=== PATIENT | female | born 1980 | race Caucasian/White ===

== ENCOUNTER 2019-01-27 14:14 | Emergency (ER) | payer SELFPAY ==
--- NOTE | 2019-01-27 14:25 | EDM.PDOCBH ---
ED HPI GENERAL MEDICAL PROBLEM - General Chief Complaint: Behavioral/Psych Stated Complaint: NEEDS ANXIETY MEDS REFILLED Time Seen by Provider: 01/27/19 14:25 Source of Information: Reports: Patient History Limitations: Reports: No Limitations - History of Present Illness INITIAL COMMENTS - FREE TEXT/NARRATIVE: 38-year-old female presents to the ED essentially for medication refill. She's been on venlafaxine capsules 150 mg once daily for the last 10 years. She used to live in [facility] but has since we moved to [place] and does not found a primary care practitioner yet. No without medication for the last 3 days and was rationing tablets before that. Is not sleeping and does not feel well at all.nauseated without any vomiting. Denies possibility . She uses the tablets primarily for anxiety relief. 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 on no other medications ) - Related Data Allergies Allergy/AdvReac Type Severity Reaction Status Date / Time No Known Allergies Allergy Verified 01/27/19 14:27 Home Meds: Home Meds Venlafaxine HCl [Venlafaxine HCl ER] 150 mg PO DAILY 01/27/19 [History] Venlafaxine [Effexor XR] 150 mg PO DAILY #30 cap.er 01/27/19 [Rx] Past Medical History Psychiatric History: Reports: Anxiety, Depression ED ROS GENERAL - Review of Systems Review Of Systems: See Below Constitutional: Reports: Weakness, Fatigue, Decreased Appetite (Not sleeping.). Denies: Fever, Chills, Malaise HEENT: Reports: No Symptoms Respiratory: Reports: No Symptoms Cardiovascular: Reports: No Symptoms Endocrine: Reports: Fatigue GI/Abdominal: Reports: Nausea (With no vomiting) : Reports: No Symptoms Musculoskeletal: Reports: No Symptoms Skin: Reports: No Symptoms Neurological: Reports: No Symptoms Psychiatric: Reports: Anxiety, Other Hematologic/Lymphatic: Reports: No Symptoms Immunologic: Reports: No Symptoms ED EXAM, BEHAVIORAL HEALTH - Physical Exam Exam: See Below (Insomnia) Exam Limited By: No Limitations General Appearance: Alert, Anxious (Anxious.) Eye Exam: Bilateral Eye: Normal Inspection Respiratory/Chest: No Respiratory Distress, Lungs Clear, Normal Breath Sounds, No Accessory Muscle Use Cardiovascular: Normal Peripheral Pulses, Regular Rate, Rhythm, No Edema, No Gallop, No Murmur, No Rub GI/Abdominal: Normal Bowel Sounds, Soft, Non-Tender, No Organomegaly, No Abnormal Bruit, No Mass, Pelvis Stable Back Exam: Normal Inspection, Full Range of Motion. No: CVA Tenderness (L), CVA Tenderness (R) Extremities: Normal Inspection, Normal Range of Motion, Non-Tender, No Pedal Edema Neurological: Alert Psychiatric: Alert, Normal Affect, Normal Cognition, Normal Mood, Oriented Skin Exam: Warm, Dry, Intact, Normal color, No rash COURSE, BEHAVIORAL HEALTH COMP - Course Vital Signs: Last Vital Signs Temp 36.1 C 01/27/19 14:23 Pulse 73 01/27/19 14:23 Resp 20 01/27/19 14:23 BP 133/83 01/27/19 14:23 Pulse Ox 99 01/27/19 14:23 Re-Assessment/Re-Exam: 38-year-old female presents to the ED for refill of venlafaxine 150 mg extended release capsules which she's been taking for the last 10 years. She recently relocated to [place] but has yet to find a primary care practitioner. She is to see Yara Daly primary care provider in [place]. She reports that she's been without medicine for the last 3 days and was rationing them for about a week before that. She is therefore showing some signs of withdrawal with insomnia nausea. Plan Will refill venlafaxine 150 mg extended release capsules 1 tablet daily for the next 30 days with repeats. She will find a physician here in [place] Departure - Departure Time of Disposition: 14:34 Disposition: Home, Self-Care 01 Condition: Fair Clinical Impression: Depressive disorder, Anxiety - Discharge Information *PRESCRIPTION DRUG MONITORING PROGRAM REVIEWED*: Not Applicable *COPY OF PRESCRIPTION DRUG MONITORING REPORT IN PATIENT SUSIE: Not Applicable Prescriptions: Venlafaxine [Effexor XR] 150 mg PO DAILY #30 cap.er Forms: ED Department Discharge Additional Instructions: Evaluation in the emergency room today primarily in regards to medication refill. You have been on venlafaxine capsules - 150 mg daily for the last 10 years. To change in place of residence and lack of follow-up physician who attended the ED for medication refill today. Vaccine capsules 150 mg extended release were refilled today for the next 6 months. Continue to follow up with a primary care physician here in [place] for future refills. Sepsis Event Note - Focused Exam Vital Signs: Vital Signs Temp Pulse Resp BP Pulse Ox 01/27/19 14:23 36.1 C 73 20 133/83 99 Date Exam was Performed: 01/27/19 Time Exam was Performed: 14:38
== END 2019-01-27 14:43 | disposition home or self-care (01) ==
LOC: JD.ED 14:14 → SUPCPDRO 14:14 → JD.ED 14:43
DX: F32.9 Major depressive disorder, single episode, unspecified (principal); R53.1 Weakness; Z76.0 Encounter for issue of repeat prescription; Z79.899 Other long term (current) drug therapy
CPT/HCPCS: 99283; 99284

== ENCOUNTER 2019-02-26 08:44 | Emergency (ER) | payer SELFPAY ==
[2019-02-26] MEDS ORDERED: Acetaminophen 325 MG Tab PO ONE (09:31)
--- NOTE | 2019-02-26 09:34 | EDM.PDOC ---
<Angela Mota - Last Filed: 02/26/19 09:26> ED HPI GENERAL MEDICAL PROBLEM - General Chief Complaint: Respiratory Problem Stated Complaint: FEVER AND CONGESTION Time Seen by Provider: 02/26/19 08:57 Source of Information: Reports: Patient History Limitations: Reports: No Limitations - History of Present Illness INITIAL COMMENTS - FREE TEXT/NARRATIVE: 38-year-old female presents with cough, congestion, fever, headache, and body aches that have been occurring for about a week. She states that she had vomited 2 days ago but has not since. Her fever was around 101 F at home but is 103 F in the ED today. She notes extreme thirst despite adequate fluid intake. The patient has been treating her symptoms with ibuprofen. She has also been taking 500 mg amoxicillin capsules that her friend had picked up in [place]. There has been no improvement in her symptoms. 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 She did not receive her influenza vaccination this year. 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 Generalized Pain Score (Numeric/FACES): 7 - Related Data Allergies Allergy/AdvReac Type Severity Reaction Status Date / Time No Known Allergies Allergy Verified 02/26/19 08:55 Home Meds: Home Meds Venlafaxine [Effexor XR] 150 mg PO DAILY #30 cap.er 01/27/19 [Rx] Past Medical History - Past Health History Medical/Surgical History: Denies Medical/Surgical History Psychiatric History: Reports: Anxiety, Depression Social & Family History - Tobacco Use Smoking Status *Q: Current Some Day Smoker Years of Tobacco use: 20 Packs/Tins Daily: 0.1 - Caffeine Use Caffeine Use: Reports: Coffee - Recreational Drug Use Recreational Drug Use: Yes Drug Use in Last 12 Months: Yes Recreational Drug Type: Reports: Marijuana/Hashish Recreational Drug Use Frequency: Socially ED ROS GENERAL - Review of Systems Review Of Systems: See Below Constitutional: Reports: Fever, Chills, Fatigue, Diaphoresis HEENT: Reports: Sinus Problem (congestion ). Denies: Ear Pain, Throat Pain Respiratory: Reports: Cough. Denies: Shortness of Breath, Hemoptysis Cardiovascular: Reports: No Symptoms GI/Abdominal: Reports: Abdominal Pain (LLQ, not currently, occurs during bowel movements ), Constipation, Vomiting (once 2 days ago ). Denies: Bloody Stool, Diarrhea, Difficulty Swallowing, Hematemesis, Nausea : Reports: No Symptoms Musculoskeletal: Reports: Other (generalized body aches) Skin: Reports: Diaphoresis. Denies: Rash Neurological: Reports: Headache. Denies: Confusion, Dizziness, Syncope, Weakness Psychiatric: Reports: No Symptoms (history of anxiety and depression) Hematologic/Lymphatic: Reports: No Symptoms Immunologic: Reports: No Symptoms ED EXAM, GENERAL - Physical Exam Exam: See Below Exam Limited By: No Limitations General Appearance: Alert, WD/WN, No Apparent Distress Ears: Normal External Exam, Normal Canal, Hearing Grossly Normal, Normal TMs Nose: Normal Inspection, Normal Mucosa, No Blood Throat/Mouth: Normal Inspection, Normal Lips, Normal Oropharynx, Normal Voice, No Airway Compromise Head: Atraumatic, Normocephalic Neck: Normal Inspection, Supple, Non-Tender. No: Lymphadenopathy (L), Lymphadenopathy (R) Respiratory/Chest: No Respiratory Distress, Lungs Clear, Normal Breath Sounds, No Accessory Muscle Use Cardiovascular: Normal Peripheral Pulses, Regular Rate, Rhythm, No Murmur GI/Abdominal: Normal Bowel Sounds, Soft, Non-Tender Neurological: Alert, Oriented, Normal Cognition Psychiatric: Normal Affect, Normal Mood Skin Exam: Warm, Intact, Normal Color, No Rash, Diaphoretic Lymphatic: No Adenopathy Course - Vital Signs Last Recorded V/S: Last Vital Signs Temp 103 F H 02/26/19 08:59 Pulse 109 H 02/26/19 08:59 Resp 16 02/26/19 08:59 BP 149/88 H 02/26/19 08:59 Pulse Ox 99 02/26/19 08:59 - Orders/Labs/Meds Meds: Medications Discontinued Medications Generic Name Dose Route Start Last Admin Trade Name Freq PRN Reason Stop Dose Admin Acetaminophen 975 mg 02/26/19 09:31 02/26/19 09:39 Tylenol PO 02/26/19 09:32 975 mg NOW ONE Administration Departure - Departure Disposition: Home, Self-Care 01 Clinical Impression: Influenza - Discharge Information Instructions: Influenza, Adult Referrals: PCP,None [Primary Care Provider] - Forms: ED Department Discharge, ED Return to Work/School Form Additional Instructions: Your symptoms are very compatible with the influenza that is going around right now. As discussed you should be at the tail end of the severe part of the illness and symptoms now will get better over the next 24-48 hours. Vaporizer or steam as needed. Alternate Tylenol and Motrin or ibuprofen as needed. Drink plenty of water to maintain hydration. Follow-up clinic if not tremendously better by early next week, in the ED as needed if symptoms worsening in any way. Sepsis Event Note - Evaluation Sepsis Screening Result: No Definite Risk - Focused Exam Date Exam was Performed: 02/26/19 Time Exam was Performed: 09:26 <Junior Chadwick - Last Filed: 02/27/19 07:20> Course - Re-Assessments/Exams Free Text/Narrative Re-Assessment/Exam: 02/26/19 09:57 Initial hx and eval has been done by RACHEL Granados student. I agree with her hx and exam as documented. I have also interviewed examined patient. Chest x-ray does look good. She has had a more prolonged course of serious illness than expected with hx that the fever chills started already 4-5 days ago. She should be at the end of the more serious part of the illness, sats are good, no resp. distress, discharge instr. as documented. Departure - Departure Time of Disposition: 10:06 Condition: Fair Sepsis Event Note - Focused Exam Date Exam was Performed: 02/27/19 Time Exam was Performed: 07:18
--- NOTE | 2019-02-26 10:34 | CR ---
Chest: Two views of the chest were obtained. Comparison: No prior chest imaging. Heart size and mediastinum are normal. Lungs are clear. Bony structures are unremarkable. Impression: 1. Nothing acute is seen on two-view chest x-ray. Diagnostic code #1 This report was dictated in [place] Standard Time
== END 2019-02-26 10:35 | disposition home or self-care (01) ==
LOC: JD.ED 08:44
DX: J11.1 Influenza due to unidentified influenza virus with other respiratory manifestations (principal); F17.210 Nicotine dependence, cigarettes, uncomplicated; F41.9 Anxiety disorder, unspecified; F32.9 Major depressive disorder, single episode, unspecified; Z79.899 Other long term (current) drug therapy
CPT/HCPCS: 71046; 99284; A9270; 99282

== ENCOUNTER 2020-07-01 12:46 | Inpatient (IN) | payer MEDICAID ==
[2020-07-01] MEDS ORDERED: Nalbuphine 10 MG/1 ML Vial IVPUSH PRN (13:36)
[2020-07-01] MEDS ORDERED: Sodium Chloride 0.9% 10 ML Syringe FLUSH PRN (13:36)
[2020-07-01] MEDS ORDERED: Ampicillin 2 GM in Sodium Chloride 0.9% 100 ML IV ONE (13:36)
[2020-07-01] MEDS ORDERED: Lactated Ringers 1,000 ML IV SCH (13:45)
[2020-07-01] MEDS ORDERED: Oxytocin/Lactated Ringers 10 UNIT/1,000 ML BAG IV SCH ×2 (13:45→14:50)
[2020-07-01] MEDS ORDERED: Betamethasone Acetate/Betamethasone Sod Phosphate 30 MG/5 ML MDV ONE (13:51)
--- NOTE | 2020-07-01 15:23 | PCM.PREANE ---
Preanesthetic Assessment - Anesthesia/Transfusion/Family Hx Anesthesia History: Prior Anesthesia Without Reaction Family History of Anesthesia Reaction: No Transfusion History: No Prior Transfusion(s) - Review of Systems General: No Symptoms Pulmonary: No Symptoms Cardiovascular: No Symptoms Gastrointestinal: Abdominal Pain (contractions) Neurological: No Symptoms Other: Reports: Depression, Anxiety - Physical Assessment NPO Status Date: 07/01/20 NPO Status Time: 08:00 Vital Signs: 139/83 98 100% RA 20 RR ASA Class: 2E Mental Status: Alert & Oriented x3 Airway Class: Mallampati = 2 Dentition: Reports: Broken Tooth/Teeth (Very poor dentition, patient states no loose teeth), Missing Tooth/Teeth, Caries Thyro-Mental Finger Breadths: 3 Mouth Opening Finger Breadths: 3 ROM/Head Extension: Full Lungs: Clear to Auscultation Cardiovascular: Regular Rate - Lab Values: Laboratory Last Values WBC 11.28 K/mm3 (3.98-10.04) H 07/01/20 13:32 RBC 4.05 M/mm3 (3.98-5.22) 07/01/20 13:32 Hgb 12.1 gm/dl (11.2-15.7) 07/01/20 13:32 Hct 35.5 % (34.1-44.9) 07/01/20 13:32 MCV 87.7 fl (79.4-94.8) 07/01/20 13:32 MCH 29.9 pg (25.6-32.2) 07/01/20 13:32 MCHC 34.1 g/dl (32.2-35.5) 07/01/20 13:32 RDW Std Deviation 43.0 fL (36.4-46.3) 07/01/20 13:32 Plt Count 250 K/mm3 (182-369) 07/01/20 13:32 MPV 8.5 fl (9.4-12.3) L 07/01/20 13:32 Neut % (Auto) 78.3 % (34.0-71.1) H 07/01/20 13:32 Lymph % (Auto) 11.3 % (19.3-51.7) L 07/01/20 13:32 Newberry % (Auto) 8.8 % (4.7-12.5) 07/01/20 13:32 Eos % (Auto) 0.9 (0.7-5.8) 07/01/20 13:32 Baso % (Auto) 0.2 % (0.1-1.2) 07/01/20 13:32 Neut # (Auto) 8.83 K/mm3 (1.56-6.13) H 07/01/20 13:32 Lymph # (Auto) 1.28 K/mm3 (1.18-3.74) 07/01/20 13:32 Newberry # (Auto) 0.99 K/mm3 (0.24-0.36) H 07/01/20 13:32 Eos # (Auto) 0.10 K/mm3 (0.04-0.36) 07/01/20 13:32 Baso # (Auto) 0.02 K/mm3 (0.01-0.08) 07/01/20 13:32 SARS-CoV-2 RNA (LUCIE) Negative (NEGATIVE) 07/01/20 13:50 Labs reviewed and okay to proceed - Allergies Allergies/Adverse Reactions: Allergies Allergy/AdvReac Type Severity Reaction Status Date / Time No Known Allergies Allergy Verified 02/26/19 08:55 - Blood Blood Available: Yes Product(s) Available: PRBC (type and screen) - Anesthesia Plan Pre-Op Medication Ordered: None PreAnesthesia Questionnaire - Past Health History Medical/Surgical History: Denies Medical/Surgical History Psychiatric History: Reports: Anxiety, Depression - SUBSTANCE USE Tobacco Use Status *Q: Current Some Day Tobacco User Tobacco Use Within Last Twelve Months: Vaping Recreational Drug Use History: Yes Recreational Drug Type: Reports: Marijuana/Hashish (Most days using) - HOME MEDS Home Medications: Home Meds Venlafaxine [Effexor XR] 150 mg PO DAILY #30 cap.er 01/27/19 [Rx] - CURRENT (IN HOUSE) MEDS Current Meds: Current Medications Lactated Ringer's (Ringers, Lactated) 1,000 mls @ 100 mls/hr IV ASDIRECTED MISSY Ampicillin Sodium 1 gm/ Sodium (Chloride) 100 mls @ 200 mls/hr IV Q4H MISSY Oxytocin/Lactated Ringer's (Pitocin In Lr 10 Units/1,000 Ml) 10 unit in 1,000 mls @ 500 mls/hr IV .CONTINUOUS MISSY Nalbuphine HCl (Nalbuphine 10 Mg/1 Ml Vial) 10 mg IVPUSH Q2H PRN PRN Reason: Pain Sodium Chloride (Sodium Chloride 0.9% 10 Ml Syringe) 10 ml FLUSH ASDIRECTED PRN PRN Reason: Keep Vein Open Discontinued Medications Betamethasone Acet/Betameth SodPhos (Betamethasone Acetate/Betamethasone Sod Phosphate 30 Mg/5 Ml Mdv) Confirm Administered Dose 30 mg .ROUTE .STK-MED ONE Stop: 07/01/20 13:52 Ampicillin Sodium 2 gm/ Sodium (Chloride) 100 mls @ 200 mls/hr IV ONETIME ONE Stop: 07/01/20 14:05
[2020-07-01] MEDS ORDERED: Morphine PF 10 MG/10 ML SDV ONE (15:39)
[2020-07-01] MEDS ORDERED: ceFAZolin 1 GM Vial ONE (16:00)
[2020-07-01] MEDS ORDERED: Ondansetron 4 MG/2 ML SDV IVPUSH PRN (16:23)
--- NOTE | 2020-07-01 16:45 | PCM.POSTAN ---
POST ANESTHESIA ASSESSMENT - MENTAL STATUS Mental Status: Alert, Oriented - RESPIRATORY Respiratory Status: Respiratory Rate WNL, Airway Patent, O2 Saturation Stable - CARDIOVASCULAR CV Status: Pulse Rate WNL, Blood Pressure Stable - GASTROINTESTINAL GI Status: No Symptoms - PAIN Pain Score: 0 - POST OP HYDRATION Hydration Status: Adequate & Stable
--- NOTE | 2020-07-01 17:01 | PCM.LDHP ---
L&D History of Present Illness - General Date of Service: 07/01/20 Admit Problem/Dx: Patient Status Order with Admit Dx/Problem 07/01/20 13:37 Patient Status [ADT] Routine Admission Diagnosis/Problem Admission Diagnosis/Problem Source of Information: Patient History Limitations: Reports: No Limitations - History of Present Illness Introduction:: Patient is a 39 y/o at 25 6/7 wks by patient reported due date of 10/08 who presents today for concerns of several days of "urinary incontinence" and now vaginal bleeding. Reports had an early US this . Otherwise had no regular care. No 20 week US. 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 (x1), Therapeutic (x2) : 4 Para: 0 LMP (Approximate): Psychiatric History: Reports: Anxiety, Depression - Past Surgical History Female Surgical History: Reports: D&C (x2) Social & Family History - Tobacco Use Tobacco Use Status *Q: Current Some Day Tobacco User - Caffeine Use Caffeine Use: Reports: Coffee - Alcohol Use Alcohol Use History: No - Recreational Drug Use Recreational Drug Use: Yes Recreational Drug Type: Reports: Marijuana/Hashish (Most days using) H&P Review of Systems - Review of Systems: Review Of Systems: See Below General: Reports: No Symptoms Pulmonary: Reports: No Symptoms Cardiovascular: Reports: No Symptoms Gastrointestinal: Reports: No Symptoms Genitourinary: Reports: Other (leakage of large amouts of fluid ) Musculoskeletal: Reports: No Symptoms Psychiatric: Reports: No Symptoms L&D Exam - Exam Exam: See Below - Vital Signs Vital Signs: Last Vital Signs Temp 36.6 C 07/01/20 16:55 Pulse Resp 12 07/01/20 16:55 BP 122/63 07/01/20 16:55 Pulse Ox 100 07/01/20 16:55 - OB Specific Contraction Intensity: Mild to Moderate Movement: Active Heart Tones: Present Heart Tones per Min: 150 Heart Rate (FHR) Variability: Moderate (6-25 bmp) Presentation: Vertex - Hollins Score Hollins Score Cervix Position: Anterior Hollins Score Consistency: Soft Hollins Score Effacement: >80% Hollins Score Dilation: > 5 cm Hollins Score Infant's Station: -1 ,0 Hollins Score Total: 12 - Exam General: Alert, Oriented, Cooperative Lungs: Clear to Auscultation, Normal Respiratory Effort Cardiovascular: Regular Rate, Regular Rhythm GI/Abdominal Exam: Soft, Non-Tender Genitourinary: Other (Speculum shows what is eventually recognized to be scalp/head at the top of the vagina ) Back Exam: Normal Inspection Extremities: Normal Inspection Skin: Warm, Dry, Intact - Patient Data Lab Results Last 24 hrs: Laboratory Results - last 24 hr 07/01/20 07/01/20 07/01/20 Range/Units 13:32 13:32 13:50 WBC 11.28 H (3.98-10.04) K/mm3 RBC 4.05 (3.98-5.22) M/mm3 Hgb 12.1 (11.2-15.7) gm/dl Hct 35.5 (34.1-44.9) % MCV 87.7 (79.4-94.8) fl MCH 29.9 (25.6-32.2) pg MCHC 34.1 (32.2-35.5) g/dl RDW Std Deviation 43.0 (36.4-46.3) fL Plt Count 250 (182-369) K/mm3 MPV 8.5 L (9.4-12.3) fl Neut % (Auto) 78.3 H (34.0-71.1) % Lymph % (Auto) 11.3 L (19.3-51.7) % Haines % (Auto) 8.8 (4.7-12.5) % Eos % (Auto) 0.9 (0.7-5.8) Baso % (Auto) 0.2 (0.1-1.2) % Neut # (Auto) 8.83 H (1.56-6.13) K/mm3 Lymph # (Auto) 1.28 (1.18-3.74) K/mm3 Haines # (Auto) 0.99 H (0.24-0.36) K/mm3 Eos # (Auto) 0.10 (0.04-0.36) K/mm3 Baso # (Auto) 0.02 (0.01-0.08) K/mm3 SARS-CoV-2 RNA (LUCIE) Negative (NEGATIVE) Blood Type A NEGATIVE Gel Antibody Screen Positive Result Diagrams: 07/01/20 13:32 - Problem List (1) 25 weeks gestation of SNOMED Code(s): 72356260 ICD Code: Z3A.25 - 25 WEEKS GESTATION OF Status: Acute Current Visit: Yes (2) No care in current SNOMED Code(s): 650848740 ICD Code: O09.30 - SUPRVSN OF PREG W INSUFFICIENT ANTENAT CARE, UNSP TRIMESTER Status: Acute Current Visit: Yes Qualifiers: Trimester: third trimester Qualified Code(s): O09.33 - Supervision of with insufficient care, third trimester (3) premature rupture of membranes SNOMED Code(s): 349257943 ICD Code: O42.919 - PRETRM ISMAEL ROM, UNSP TIME BETW RUPT AND ONST LABR, UNSP TRI Status: Acute Current Visit: Yes Qualifiers: PROM onset of labor timing: unspecified duration between rupture of membranes and onset of labor Qualified Code(s): O42.919 - premature rupture of membranes, unspecified as to length of time between rupture and onset of labor, unspecified trimester Problem List Initiated/Reviewed/Updated: Yes Orders Last 24hrs: Active Orders 24 hr Category Date Time Status Patient Status [ADT] Routine ADT 07/01/20 13:37 Active Activity as Tolerated [RC] PFP Care 07/01/20 13:37 Active Communication Order [RC] ASDIRECTED Care 07/01/20 13:37 Active Communication Order [RC] ROUTINE Care 07/01/20 16:23 Active Cooling Warming Measures [RC] ASDIRECTED Care 07/01/20 16:23 Active Heart Tones [RC] ASDIRECTED Care 07/01/20 13:37 Active Non Stress Test [RC] PER UNIT ROUTINE Care 07/01/20 13:37 Active Notify Provider [RC] ASDIRECTED Care 07/01/20 16:23 Active Notify Provider [RC] PFP Care 07/01/20 13:37 Active Notify Provider [RC] PRN Care 07/01/20 13:37 Active Oxygen Therapy [RC] ASDIRECTED Care 07/01/20 16:23 Active Peripheral IV Care [RC] . DIRECTED Care 07/01/20 13:37 Active Pulse Oximetry [RC] ASDIRECTED Care 07/01/20 16:23 Active Vital Signs [RC] PER UNIT ROUTINE Care 07/01/20 13:37 Active ANTIBODY IDENTIFICATION [BBK] Routine Lab 07/01/20 13:32 Results GROUP B STREP BY PCR [MOLEC] Stat Lab 07/01/20 13:15 Received HEP C VIRUS AB [REF] Stat Lab 07/01/20 13:32 Received HEPATITIS B SURFACE AG [CHEM] Stat Lab 07/01/20 13:32 Received PATIENT RETYPE [BBK] Routine Lab 07/01/20 15:19 Ordered RAPID PLASMA REAGIN,RPR [CHEM] Routine Lab 07/01/20 13:32 Received RUBELLA ANTIBODY IGG [CHEM] Stat Lab 07/01/20 13:32 Received TYPE AND SCREEN [BBK] Routine Lab 07/01/20 13:32 Results Ampicillin 1 gm Med 07/01/20 17:30 Active Sodium Chloride 0.9% [Normal Saline] 100 ml IV Q4H Lactated Ringers [Ringers, Lactated] 1,000 ml Med 07/01/20 13:45 Active IV ASDIRECTED Nalbuphine [Nubain] Med 07/01/20 13:36 Active 10 mg IVPUSH Q2H PRN Ondansetron [Zofran] Med 07/01/20 16:23 Active 4 mg IVPUSH ONETIME PRN Oxytocin/Lactated Ringers [Pitocin in LR 10 Units/1,000 Med 07/01/20 13:45 Active ML] 10 unit in 1,000 ml IV .CONTINUOUS Sodium Chloride 0.9% [Saline Flush] Med 07/01/20 13:36 Active 10 ml FLUSH ASDIRECTED PRN Electronic Heart Tones Ext w TOCO [WOMSER] Oth 07/01/20 13:37 Ordered Routine Electronic Heart Tones Internal [WOMSER] Per Unit Oth 07/01/20 13:37 Ordered Routine Peripheral IV Insertion Adult [OM.PC] Routine Oth 07/01/20 13:37 Ordered Resuscitation Status Routine Resus Stat 07/01/20 13:36 Ordered Medication Orders Lactated Ringer's (Ringers, Lactated) 1,000 mls @ 100 mls/hr IV ASDIRECTED MISSY Ampicillin Sodium 1 gm/ Sodium (Chloride) 100 mls @ 200 mls/hr IV Q4H MISSY Oxytocin/Lactated Ringer's (Pitocin In Lr 10 Units/1,000 Ml) 10 unit in 1,000 mls @ 500 mls/hr IV .CONTINUOUS MISSY Nalbuphine HCl (Nalbuphine 10 Mg/1 Ml Vial) 10 mg IVPUSH Q2H PRN PRN Reason: Pain Ondansetron HCl (Ondansetron 4 Mg/2 Ml Sdv) 4 mg IVPUSH ONETIME PRN PRN Reason: Nausea/Vomiting Stop: 07/01/20 19:00 Sodium Chloride (Sodium Chloride 0.9% 10 Ml Syringe) 10 ml FLUSH ASDIRECTED PRN PRN Reason: Keep Vein Open Assessment/Plan Comment:: * Speculum exam shows blood tinged fluid and scalp at top of vagina. Bedside US shows essentially anhydramnios. SVE done and shows patient to be completely dilated and -1 station. GBS collected. Ampicillin started. Betamethasone given. Full labs ordered. Peds made aware. Anticipate
--- NOTE | 2020-07-01 17:06 | PCM.OPNOTE ---
- General Post-Op/Procedure Note Date of Surgery/Procedure: 07/01/20 Operative Procedure(s): Primary classical Findings: Baby boy in vertex presentation. APGARS / Weight pending at time of dictation. Normal appearance of the uterus, fallopian tubes, and ovaries. Pre Op Diagnosis: 25 6/7 wks. PPROM. Compound presentation Post-Op Diagnosis: Same Anesthesia Technique: Spinal Primary Surgeon: Anni Shields Secondary Surgeon: Charleen Wray Anesthesia Provider: Steph Thomas Reason Bilingual Operator Was Necessary: Speed, safety of procedure Pathology: Cord gas attempted. Placenta sent to pathology Fluid Replacement, Intraop: 1,500 Output, Urine Amount: 30 EBL in mLs: 700 Complications: None Condition: Good Free Text/Narrative:: The risks, benefits, indications, potential complications, and alternatives were explained to the patient and informed consent obtained. After induction of anesthesia, the patient was placed in a supine position and then draped and prepped in the usual sterile manner. A Pfannenstiel incision was made and carried down through the subcutaneous tissue to the fascia. Fascia l incision was made and extended transversely. The fascia was from the underlying rectus tissue superiorly and inferiorly. The peritoneum was identified and entered. Peritoneal incision was extended longitudinally. A classical uterine incision was made sharply. With incision an anterior placenta was encountered. Able to bluntly breech the uterine cavity and gently stretch the uterine incision. Baby head noted to be wedged in the pelvis.Able to gently grasp feet and bring though the hysterotomy. Baby delivered up to hips and then gentle traction placed on hips. Arms swept in standard maneuvers. Head did not immediately delivery. Vaginal hand placed by clerical dentist assistant and gently pushed up and allowed delivery to occur. Cord clamped and baby handed to [employer] Administrator. Segment obtained for cord gas. Not able to obtain cord blood. The placenta was removed intact and appeared normal. The uterus was exteriorized and cleared of clots. The uterine outline, tubes and ovaries appeared normal. The uterine incision was closed with 2 layers of running, locked 0 Vicryl. Several horizontal sutures also placed in a 3rd layer. Finally the serosa was closed with a running 4-0 Vicryl placed in a baseball stitch. The uterus was then placed back into the abdomen. Bleeding noted over hysterotomy site. Patient given tranexamic acid and Momo Seal placed across incision. After several minutes was reassessed and hemostasis noted. The fascia was then reapproximated with running sutures of 0 Vicryl. The subcutaneous tissue was irrigated with sterile warm normal saline, hemostasis obtained with cautery. This layer was closed with several interrupted 0 Vicryl sutures. The skin was reapproximated with running Subcuticular 4-0 Monocryl suture and sealed with Dermabond. Instrument, sponge, and needle counts were correct prior the abdominal closure and at the conclusion of the case.
--- NOTE | 2020-07-01 17:18 | PCM48HPAN ---
Post Anesthesia Note - EVALUATION WITHIN 48HRS OF ANESTHETIC Vital Signs in Normal Range: Yes Patient Participated in Evaluation: Yes Respiratory Function Stable: Yes Airway Patent: Yes Cardiovascular Function Stable: Yes Hydration Status Stable: Yes Pain Control Satisfactory: Yes Nausea and Vomiting Control Satisfactory: Yes Mental Status Recovered: Yes Vital Signs: Last Vital Signs Temp 36.4 C 07/01/20 17:06 Pulse Resp 15 07/01/20 17:06 BP 118/65 07/01/20 17:06 Pulse Ox 100 07/01/20 17:06
[2020-07-01] MEDS ORDERED: Acetaminophen/oxyCODONE 325-5 MG Tab PO PRN (17:21)
[2020-07-01] MEDS ORDERED: ePHEDrine 50 MG/ML SDV IVPUSH PRN (17:21)
[2020-07-01] MEDS ORDERED: Dextrose 5%-Lactated Ringers 1,000 ML IV SCH (17:21)
[2020-07-01] MEDS ORDERED: diphenhydrAMINE 50 MG/ML SDV IVPUSH PRN (17:21)
[2020-07-01] MEDS ORDERED: Naloxone 0.4 MG/ML SDV IVPUSH PRN (17:21)
[2020-07-01] MEDS ORDERED: Ampicillin 1 GM in Sodium Chloride 0.9% 100 ML IV SCH (17:30)
--- NOTE | 2020-07-01 17:46 | PCM.SN.2 ---
- Free Text/Narrative Note: 1500 Patient pushing for about a 1.5 hours and with little progress noted. On exam can feel what seems to be a compound presentation now. Small bony part noted to maternal right next to head - uncertain if compound with arm/elbow. Patient also a few scattered random variable decelerations. Will move to the OR and continue to push there and see if compound presentation reduces or if need to proceed with
--- NOTE | 2020-07-01 17:49 | PCM.SN.2 ---
- Free Text/Narrative Note: 1530 Patient has continued to push in OR, but now can feel more of a hand/arm that has slipped in front of head. Will need to proceed with . Risks reviewed. Patient aware will be classical incision. Anni Shields MD
[2020-07-01] MEDS: Acetaminophen/oxyCODONE 325-5 MG Tab PO PRN ×2 (18:28→22:32)
[2020-07-01] MEDS ORDERED: Betamethasone Acetate/Betamethasone Sod Phosphate 30 MG/5 ML MDV IM ONE (18:40)
[2020-07-01] MEDS: Ketorolac 30 MG/ML SDV IVPUSH SCH (23:15)
[2020-07-02] MEDS: Acetaminophen/oxyCODONE 325-5 MG Tab PO PRN ×2 (04:43→13:53)
[2020-07-02] MEDS: Ketorolac 30 MG/ML SDV IVPUSH SCH ×2 (05:25→16:14)
--- NOTE | 2020-07-02 07:19 | PCM.PNPP ---
- General Info Date of Service: 07/02/20 Functional Status: Reports: Pain Controlled, Tolerating Diet, Ambulating, Urinating - Review of Systems General: Reports: No Symptoms Pulmonary: Reports: No Symptoms Cardiovascular: Reports: No Symptoms Gastrointestinal: Reports: Abdominal Pain Genitourinary: Reports: No Symptoms Musculoskeletal: Reports: No Symptoms Neurological: Reports: No Symptoms - Patient Data Vital Signs - Most Recent: Last Vital Signs Temp 36.8 C 07/02/20 03:36 Pulse 95 07/02/20 04:51 Resp 16 07/02/20 07:00 BP 142/72 H 07/02/20 04:51 Pulse Ox 100 07/02/20 07:00 Weight - Most Recent: 94.347 kg I&O - Last 24 Hours: Intake & Output 07/01/20 07/02/20 07/02/20 22:59 06:59 14:59 Intake Total 1800 2000 Output Total 310 106% Balance 1490 93E Lab Results - Last 24 Hours: Laboratory Results - last 24 hr 07/01/20 07/01/20 07/01/20 Range/Units 13:32 13:32 13:32 WBC 11.28 H (3.98-10.04) K/mm3 RBC 4.05 (3.98-5.22) M/mm3 Hgb 12.1 (11.2-15.7) gm/dl Hct 35.5 (34.1-44.9) % MCV 87.7 (79.4-94.8) fl MCH 29.9 (25.6-32.2) pg MCHC 34.1 (32.2-35.5) g/dl RDW Std Deviation 43.0 (36.4-46.3) fL Plt Count 250 (182-369) K/mm3 MPV 8.5 L (9.4-12.3) fl Neut % (Auto) 78.3 H (34.0-71.1) % Lymph % (Auto) 11.3 L (19.3-51.7) % [place] % (Auto) 8.8 (4.7-12.5) % Eos % (Auto) 0.9 (0.7-5.8) Baso % (Auto) 0.2 (0.1-1.2) % Neut # (Auto) 8.83 H (1.56-6.13) K/mm3 Lymph # (Auto) 1.28 (1.18-3.74) K/mm3 [place] # (Auto) 0.99 H (0.24-0.36) K/mm3 Eos # (Auto) 0.10 (0.04-0.36) K/mm3 Baso # (Auto) 0.02 (0.01-0.08) K/mm3 Urine Opiates Screen (NDPDQY=335) Ur Buprenorphine Scrn (CUTOFF=10) Ur Oxycodone Screen (DOR7WS=695) Urine Methadone Screen (GXECXV=025) Ur Propoxyphene Screen (YSVWVG=524) Ur Barbiturates Screen (JJAFDT=664) Ur Tricyclics Screen (GIWQSY=291) Ur Phencyclidine Scrn (CUTOFF=25) Ur Amphetamine Screen (NCFDBG=252) U Methamphetamines Scrn (KKVGYB=810) U Benzodiazepines Scrn (ZRUVIG=945) U Cocaine Metab Screen (AHHNGN=576) U Marijuana (THC) Screen (CUTOFF=50) RPR Non-reactive (NONREACTIVE) SARS-CoV-2 RNA (LUCIE) (NEGATIVE) MRSA (PCR) Blood Type A NEGATIVE Gel Antibody Screen Positive 07/01/20 07/01/20 07/01/20 Range/Units 13:50 20:36 20:53 WBC (3.98-10.04) K/mm3 RBC (3.98-5.22) M/mm3 Hgb (11.2-15.7) gm/dl Hct (34.1-44.9) % MCV (79.4-94.8) fl MCH (25.6-32.2) pg MCHC (32.2-35.5) g/dl RDW Std Deviation (36.4-46.3) fL Plt Count (182-369) K/mm3 MPV (9.4-12.3) fl Neut % (Auto) (34.0-71.1) % Lymph % (Auto) (19.3-51.7) % [place] % (Auto) (4.7-12.5) % Eos % (Auto) (0.7-5.8) Baso % (Auto) (0.1-1.2) % Neut # (Auto) (1.56-6.13) K/mm3 Lymph # (Auto) (1.18-3.74) K/mm3 [place] # (Auto) (0.24-0.36) K/mm3 Eos # (Auto) (0.04-0.36) K/mm3 Baso # (Auto) (0.01-0.08) K/mm3 Urine Opiates Screen Negative (KQYUKD=988) Ur Buprenorphine Scrn Negative (CUTOFF=10) Ur Oxycodone Screen Presumptive positive H (LOF5SZ=740) Urine Methadone Screen Negative (HIDAUO=835) Ur Propoxyphene Screen Negative (TMWJNV=443) Ur Barbiturates Screen Negative (HREAGN=246) Ur Tricyclics Screen Negative (FMWOQL=064) Ur Phencyclidine Scrn Negative (CUTOFF=25) Ur Amphetamine Screen Presumptive positive H (CJMBDM=361) U Methamphetamines Scrn Presumptive positive H (BBAJLN=940) U Benzodiazepines Scrn Negative (UQZYPW=338) U Cocaine Metab Screen Negative (XVBEDF=386) U Marijuana (THC) Screen Presumptive positive H (CUTOFF=50) RPR (NONREACTIVE) SARS-CoV-2 RNA (LUCIE) Negative (NEGATIVE) MRSA (PCR) Positive H Blood Type Gel Antibody Screen 07/02/20 Range/Units 06:49 WBC 16.84 H (3.98-10.04) K/mm3 RBC 3.37 L (3.98-5.22) M/mm3 Hgb 10.0 L D (11.2-15.7) gm/dl Hct 29.6 L (34.1-44.9) % MCV 87.8 (79.4-94.8) fl MCH 29.7 (25.6-32.2) pg MCHC 33.8 (32.2-35.5) g/dl RDW Std Deviation 41.5 (36.4-46.3) fL Plt Count 231 (182-369) K/mm3 MPV 8.7 L (9.4-12.3) fl Neut % (Auto) (34.0-71.1) % Lymph % (Auto) (19.3-51.7) % [place] % (Auto) (4.7-12.5) % Eos % (Auto) (0.7-5.8) Baso % (Auto) (0.1-1.2) % Neut # (Auto) (1.56-6.13) K/mm3 Lymph # (Auto) (1.18-3.74) K/mm3 [place] # (Auto) (0.24-0.36) K/mm3 Eos # (Auto) (0.04-0.36) K/mm3 Baso # (Auto) (0.01-0.08) K/mm3 Urine Opiates Screen (ITGTCF=736) Ur Buprenorphine Scrn (CUTOFF=10) Ur Oxycodone Screen (IPF9SK=723) Urine Methadone Screen (ZKVAXU=182) Ur Propoxyphene Screen (CXARNX=522) Ur Barbiturates Screen (LTTINO=566) Ur Tricyclics Screen (PLBURB=347) Ur Phencyclidine Scrn (CUTOFF=25) Ur Amphetamine Screen (KELRHD=118) U Methamphetamines Scrn (FCHSAX=037) U Benzodiazepines Scrn (OOFBYJ=298) U Cocaine Metab Screen (VDFZJS=696) U Marijuana (THC) Screen (CUTOFF=50) RPR (NONREACTIVE) SARS-CoV-2 RNA (LUCIE) (NEGATIVE) MRSA (PCR) Blood Type Gel Antibody Screen Med Orders - Current: Current Medications Diphenhydramine HCl (Diphenhydramine 50 Mg/Ml Sdv) 25 mg IVPUSH Q6H PRN PRN Reason: Itching or Nausea Ephedrine Sulfate (Ephedrine 50 Mg/Ml Sdv) 5 mg IVPUSH SEECOMMENT PRN PRN Reason: Other Oxytocin/Lactated Ringer's (Pitocin In Lr 10 Units/1,000 Ml) 10 unit in 1,000 mls @ 12 mls/hr IV TITRATE MISSY; Protocol Last Admin: 07/01/20 14:54 Dose: 2 munits/min, 12 mls/hr Documented by: Ibuprofen (Ibuprofen 600 Mg Tab) 600 mg PO Q6H PRN PRN Reason: mild pain or fever Ketorolac Tromethamine (Ketorolac 30 Mg/Ml Sdv) 30 mg IVPUSH Q6H MISSY Stop: 07/02/20 11:16 Last Admin: 07/02/20 05:25 Dose: 30 mg Documented by: Naloxone HCl (Naloxone 0.4 Mg/Ml Sdv) 0.1 mg IVPUSH SEECOMMENT PRN PRN Reason: Respiratory Depression Oxycodone/Acetaminophen (Acetaminophen/Oxycodone 325-5 Mg Tab) 1 tab PO Q4H PRN PRN Reason: Pain (moderate 4-6) Oxycodone/Acetaminophen (Acetaminophen/Oxycodone 325-5 Mg Tab) 2 tab PO Q4H PRN PRN Reason: Pain (severe 7-10) Last Admin: 07/02/20 04:43 Dose: 2 tab Documented by: Discontinued Medications Betamethasone Acet/Betameth SodPhos (Betamethasone Acetate/Betamethasone Sod Phosphate 30 Mg/5 Ml Mdv) Confirm Administered Dose 30 mg .ROUTE .STK-MED ONE Stop: 07/01/20 13:52 Last Admin: 07/01/20 18:54 Dose: Not Given Documented by: Betamethasone Acet/Betameth SodPhos (Betamethasone Acetate/Betamethasone Sod Phosphate 30 Mg/5 Ml Mdv) 12 mg IM ONETIME ONE Stop: 07/01/20 18:41 Last Admin: 07/01/20 18:50 Dose: 12 mg Documented by: Cefazolin Sodium (Cefazolin 1 Gm Vial) Confirm Administered Dose 2 gm .ROUTE .STSparo Labs-MED ONE Stop: 07/01/20 16:01 Lactated Ringer's (Ringers, Lactated) 1,000 mls @ 100 mls/hr IV ASDIRECTED [facility] Last Admin: 07/01/20 13:32 Dose: 100 mls/hr Documented by: Ampicillin Sodium 2 gm/ Sodium (Chloride) 100 mls @ 200 mls/hr IV ONETIME ONE Stop: 07/01/20 14:05 Last Admin: 07/01/20 13:35 Dose: 200 mls/hr Documented by: Ampicillin Sodium 1 gm/ Sodium (Chloride) 100 mls @ 200 mls/hr IV Q4H MISSY Oxytocin/Lactated Ringer's (Pitocin In Lr 10 Units/1,000 Ml) 10 unit in 1,000 mls @ 500 mls/hr IV .CONTINUOUS MISSY Dextrose/Lactated Ringer's (Dextrose 5%-Lactated Ringers) 1,000 mls @ 125 mls/hr IV ASDIRECTED [facility] Stop: 07/02/20 01:20 Last Admin: 07/01/20 18:26 Dose: 125 mls/hr Documented by: Morphine Sulfate (Morphine Pf 10 Mg/10 Ml Sdv) Confirm Administered Dose 10 mg .ROUTE .STK-MED ONE Stop: 07/01/20 15:40 Nalbuphine HCl (Nalbuphine 10 Mg/1 Ml Vial) 10 mg IVPUSH Q2H PRN PRN Reason: Pain Ondansetron HCl (Ondansetron 4 Mg/2 Ml Sdv) 4 mg IVPUSH ONETIME PRN PRN Reason: Nausea/Vomiting Stop: 07/01/20 19:00 Sodium Chloride (Sodium Chloride 0.9% 10 Ml Syringe) 10 ml FLUSH ASDIRECTED PRN PRN Reason: Keep Vein Open Tranexamic Acid (Tranexamic Acid 1,000 Mg/10 Ml Amp) Confirm Administered Dose 1,000 mg .ROUTE .STK-MED ONE Stop: 07/01/20 16:12 - Interaction Infant Disposition, : Not Applicable Support Person: Significant Other - Recovery Exam Fundal Tone: Firm Fundal Level: At Umbilicus Fundal Placement: Midline Lochia Amount: Small Lochia Color: Rubra/Red Perineum Description: Intact, Minimal Bruising/Swelling Episiotomy/Laceration: None Bladder Status: Voiding Urinary Elimination: Voided - Exam General: Alert, Oriented, Cooperative Lungs: Clear to Auscultation, Normal Respiratory Effort Cardiovascular: Regular Rate, Regular Rhythm GI/Abdominal Exam: Soft, Tender (appropriate ) Extremities: Normal Inspection Skin: Warm, Dry, Intact Wound/Incisions: Healing Well, No Drainage - Problem List & Annotations (1) 25 weeks gestation of SNOMED Code(s): 52266012 Code(s): Z3A.25 - 25 WEEKS GESTATION OF Status: Acute Current Visit: Yes (2) No care in current SNOMED Code(s): 936699775 Code(s): O09.30 - SUPRVSN OF PREG W INSUFFICIENT ANTENAT CARE, UNSP TRIMESTER Status: Acute Current Visit: Yes Qualifiers: Trimester: third trimester Qualified Code(s): O09.33 - Supervision of with insufficient care, third trimester (3) premature rupture of membranes SNOMED Code(s): 728085152 Code(s): O42.919 - PRETRM ISMAEL ROM, UNSP TIME BETW RUPT AND ONST LABR, UNSP TRI Status: Acute Current Visit: Yes Qualifiers: PROM onset of labor timing: unspecified duration between rupture of membranes and onset of labor Qualified Code(s): O42.919 - premature rupture of membranes, unspecified as to length of time between rupture and onset of labor, unspecified trimester (4) Compound presentation of fetus SNOMED Code(s): 714949545 Code(s): O32.6XX0 - MATERNAL CARE FOR COMPOUND PRESENTATION, UNSP Status: Acute Current Visit: Yes (5) Delivery by classical section SNOMED Code(s): 848382035, 414775384 Code(s): O82 - ENCOUNTER FOR DELIVERY WITHOUT INDICATION Status: Acute Current Visit: Yes (6) Maternal drug use complicating in second trimester, antepartum SNOMED Code(s): 983782182, 989567998 Code(s): O99.322 - DRUG USE COMPLICATING , SECOND TRIMESTER Status: Acute Current Visit: Yes - Problem List Review Problem List Initiated/Reviewed/Updated: Yes - My Orders Last 24 Hours: My Active Orders 07/01/20 13:15 GROUP B STREP BY PCR [MOLEC] Stat 07/01/20 13:32 ANTIBODY IDENTIFICATION [BBK] Routine HEP C VIRUS AB [REF] Stat HEPATITIS B SURFACE AG [CHEM] Stat RUBELLA ANTIBODY IGG [CHEM] Stat TYPE AND SCREEN [BBK] Routine 07/01/20 13:36 Resuscitation Status Routine 07/01/20 14:50 Oxytocin/Lactated Ringers [Pitocin in LR 10 Units/1,000 ML] 10 unit in 1,000 ml IV TITRATE 07/01/20 Dinner Regular Diet [DIET] 07/01/20 17:21 Acetaminophen/oxyCODONE [Percocet 325-5 MG] 1 tab PO Q4H PRN Acetaminophen/oxyCODONE [Percocet 325-5 MG] 2 tab PO Q4H PRN Naloxone [Narcan] 0.1 mg IVPUSH SEECOMMENT PRN diphenhydrAMINE [Benadryl] 25 mg IVPUSH Q6H PRN ePHEDrine [ePHEDrine sulfate] 5 mg IVPUSH SEECOMMENT PRN 07/01/20 17:21 Communication Order [RC] PER UNIT ROUTINE Communication Order [RC] PER UNIT ROUTINE Intake and Output [RC] Q4H May Shower [RC] PER UNIT ROUTINE Notify Provider Intake and Out [RC] ASDIRECTED RT Incentive Spirometry [RC] Q2HWA Vital Signs [RC] Q1H Assess Lochia [WOMSER] Per Unit Routine Assess Uterine Involution [WOMSER] Per Unit Routine Breast Pump [WOMSER] Per Unit Routine Heat Therapy [OM.PC] Per Unit Routine Peripheral IV Discontinue [OM.PC] Routine 07/01/20 23:10 AMPHET/METH EXT CONF (GCMS) Stat CANNABINOID (THC) CONFIRM, UR Stat OXYCODONE/OXYMORPHONE CONFIRM Stat 07/01/20 23:15 Ketorolac [Toradol] 30 mg IVPUSH Q6H 07/02/20 06:57 Consult to Case Management/Building Mechanic [CONS] Routine 07/02/20 17:03 Urinary Catheter Removal [RC] Per Unit Routine 07/02/20 17:15 Ibuprofen [Motrin] 600 mg PO Q6H PRN - Assessment Assessment:: POD#1 - Plan Plan:: * Routine cares * Hb with appropriate drop * labs pending * Patient with positive drug screen. 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 Will have SW come and assist with patient setting up programs * Not yet pumping, baby in NICU in [place]. May want to start pumping today * Can discharge today if desires so can travel to [place]. Rx for Percocet sent. Otherwise can discharge home tomorrow
--- NOTE | 2020-07-02 07:48 | PCM48HPAN ---
Post Anesthesia Note - EVALUATION WITHIN 48HRS OF ANESTHETIC Vital Signs in Normal Range: Yes Patient Participated in Evaluation: Yes Respiratory Function Stable: Yes Airway Patent: Yes Cardiovascular Function Stable: Yes Hydration Status Stable: Yes Pain Control Satisfactory: Yes Nausea and Vomiting Control Satisfactory: Yes Mental Status Recovered: Yes Vital Signs: Last Vital Signs Temp 36.8 C 07/02/20 03:36 Pulse 95 07/02/20 04:51 Resp 16 07/02/20 07:00 BP 142/72 H 07/02/20 04:51 Pulse Ox 100 07/02/20 07:00
--- NOTE | 2020-07-02 14:12 | PCM.DCSUM1 ---
Discharge Summary - Discharge Data Discharge Date: 07/02/20 Discharge Disposition: Home, Self-Care 01 Condition: Good - Referral to Home Health Primary Care Physician: Anni Shields MD - Discharge Diagnosis/Problem(s) (1) 25 weeks gestation of SNOMED Code(s): 31577049 ICD Code: Z3A.25 - 25 WEEKS GESTATION OF Status: Acute Current Visit: Yes (2) No care in current SNOMED Code(s): 973879999 ICD Code: O09.30 - SUPRVSN OF PREG W INSUFFICIENT ANTENAT CARE, UNSP TRIMESTER Status: Acute Current Visit: Yes Qualifiers: Trimester: third trimester Qualified Code(s): O09.33 - Supervision of with insufficient care, third trimester (3) premature rupture of membranes SNOMED Code(s): 314897278 ICD Code: O42.919 - PRETRM ISMAEL ROM, UNSP TIME BETW RUPT AND ONST LABR, UNSP TRI Status: Acute Current Visit: Yes Qualifiers: PROM onset of labor timing: unspecified duration between rupture of membranes and onset of labor Qualified Code(s): O42.919 - premature rupture of membranes, unspecified as to length of time between rupture and onset of labor, unspecified trimester (4) Compound presentation of fetus SNOMED Code(s): 073209532 ICD Code: O32.6XX0 - MATERNAL CARE FOR COMPOUND PRESENTATION, UNSP Status: Acute Current Visit: Yes Qualifiers: Fetus number: single or unspecified fetus Qualified Code(s): O32.6XX0 - Maternal care for compound presentation, not applicable or unspecified (5) Delivery by classical section SNOMED Code(s): 043011754, 643596561 ICD Code: O82 - ENCOUNTER FOR DELIVERY WITHOUT INDICATION Status: Acute Current Visit: Yes (6) 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 Was ruptured and noted to be completely dilated. Baby with slight bony prominence to side of head and unfortunately with pushing a hand/arm did slip/present in front of head. For this reason taken for primary classical . See note. Baby tra nsferred to higher level of care after delivery. 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 SW consult done to aid in setting up resources/treatment. Patient was discharged home on POD#1 in order to travel to [place] and be reunited with baby - Patient Instructions Diet: Regular Diet as Tolerated Activity: No Lifting Over 10 Pounds Activity, Other: Pelvic rset for 6 weeks Driving: May Drive Today Showering/Bathing: May Shower, No Tub Bathing/Swimming Wound/Incision Care: Keep Operative Site/Wound Site Clean and Dry Notify Provider of: Fever, Increased Pain, Swelling and Redness, Drainage, Nausea and/or Vomiting - Discharge Plan *PRESCRIPTION DRUG MONITORING PROGRAM REVIEWED*: No *COPY OF PRESCRIPTION DRUG MONITORING REPORT IN PATIENT SUSIE: No Prescriptions/Med Rec: Acetaminophen/oxyCODONE [Percocet 325-5 MG] 2 tab PO Q4H PRN #25 tablet PRN Reason: Pain (Severe 7-10) Home Medications: Home Meds Venlafaxine [Effexor XR] 150 mg PO DAILY #30 cap.er 01/27/19 [Rx] Acetaminophen/oxyCODONE [Percocet 325-5 MG] 2 tab PO Q4H PRN #25 tablet 07/02/20 [Rx] Ibuprofen [Motrin] 600 mg PO Q6H PRN tablet 07/02/20 [Rx] Referrals: Anni Shields MD [Primary Care Provider] - (3 weeks for check ) - Discharge Summary/Plan Comment DC Time >30 min.: No - Patient Data Vitals - Most Recent: Last Vital Signs Temp 36.7 C 07/02/20 08:46 Pulse 104 H 07/02/20 08:47 Resp 15 07/02/20 09:00 BP 146/93 H 07/02/20 08:46 Pulse Ox 99 07/02/20 09:00 Weight - Most Recent: 94.347 kg I&O - Last 24 hours: Intake & Output 07/01/20 07/02/20 07/02/20 22:59 06:59 14:59 Intake Total 1800 2000 Output Total 310 106% Balance 1490 93E Lab Results - Last 24 hrs: Laboratory Results - last 24 hr 07/01/20 07/01/20 07/01/20 Range/Units 13:15 13:32 13:32 WBC (3.98-10.04) K/mm3 RBC (3.98-5.22) M/mm3 Hgb (11.2-15.7) gm/dl Hct (34.1-44.9) % MCV (79.4-94.8) fl MCH (25.6-32.2) pg MCHC (32.2-35.5) g/dl RDW Std Deviation (36.4-46.3) fL Plt Count (182-369) K/mm3 MPV (9.4-12.3) fl Urine Opiates Screen (AVXGJP=665) Ur Buprenorphine Scrn (CUTOFF=10) Ur Oxycodone Screen (EIQ8HZ=041) Urine Methadone Screen (DPYNWK=081) Ur Propoxyphene Screen (PBQANB=452) Ur Barbiturates Screen (UDFMNW=145) Ur Tricyclics Screen (ZGEXLY=641) Ur Phencyclidine Scrn (CUTOFF=25) Ur Amphetamine Screen (YJDVVK=551) U Methamphetamines Scrn (NKTUKC=763) U Benzodiazepines Scrn (ADPCCF=980) U Cocaine Metab Screen (SKVLKG=421) U Marijuana (THC) Screen (CUTOFF=50) RPR (NONREACTIVE) Hep Bs Antigen Nonreactive (NONREACTIVE) Rubella IgG Antibody Reactive (pos) (REACTIVE) SARS-CoV-2 RNA (LUCIE) (NEGATIVE) MRSA (PCR) Group B Strep (PCR) Positive H (NEGATIVE) Blood Type A NEGATIVE Gel Antibody Screen Positive 07/01/20 07/01/20 07/01/20 Range/Units 13:32 13:50 20:36 WBC (3.98-10.04) K/mm3 RBC (3.98-5.22) M/mm3 Hgb (11.2-15.7) gm/dl Hct (34.1-44.9) % MCV (79.4-94.8) fl MCH (25.6-32.2) pg MCHC (32.2-35.5) g/dl RDW Std Deviation (36.4-46.3) fL Plt Count (182-369) K/mm3 MPV (9.4-12.3) fl Urine Opiates Screen Negative (CHYBSJ=575) Ur Buprenorphine Scrn Negative (CUTOFF=10) Ur Oxycodone Screen Presumptive positive H (TRU0AH=289) Urine Methadone Screen Negative (INKBFN=760) Ur Propoxyphene Screen Negative (JMVMES=236) Ur Barbiturates Screen Negative (OSUIAU=253) Ur Tricyclics Screen Negative (BQTGZX=346) Ur Phencyclidine Scrn Negative (CUTOFF=25) Ur Amphetamine Screen Presumptive positive H (SSPPOJ=792) U Methamphetamines Scrn Presumptive positive H (CVEHVQ=898) U Benzodiazepines Scrn Negative (UONAWP=630) U Cocaine Metab Screen Negative (PXBISS=984) U Marijuana (THC) Screen Presumptive positive H (CUTOFF=50) RPR Non-reactive (NONREACTIVE) Hep Bs Antigen (NONREACTIVE) Rubella IgG Antibody (REACTIVE) SARS-CoV-2 RNA (LUCIE) Negative (NEGATIVE) MRSA (PCR) Group B Strep (PCR) (NEGATIVE) Blood Type Gel Antibody Screen 07/01/20 07/02/20 Range/Units 20:53 06:49 WBC 16.84 H (3.98-10.04) K/mm3 RBC 3.37 L (3.98-5.22) M/mm3 Hgb 10.0 L D (11.2-15.7) gm/dl Hct 29.6 L (34.1-44.9) % MCV 87.8 (79.4-94.8) fl MCH 29.7 (25.6-32.2) pg MCHC 33.8 (32.2-35.5) g/dl RDW Std Deviation 41.5 (36.4-46.3) fL Plt Count 231 (182-369) K/mm3 MPV 8.7 L (9.4-12.3) fl Urine Opiates Screen (SZVCWO=016) Ur Buprenorphine Scrn (CUTOFF=10) Ur Oxycodone Screen (IOM8JF=019) Urine Methadone Screen (KJOOAN=143) Ur Propoxyphene Screen (NVBTKL=129) Ur Barbiturates Screen (ATWKGX=799) Ur Tricyclics Screen (BTHICW=467) Ur Phencyclidine Scrn (CUTOFF=25) Ur Amphetamine Screen (NPWMWR=504) U Methamphetamines Scrn (GWMNTK=803) U Benzodiazepines Scrn (EBVYPT=727) U Cocaine Metab Screen (NVOYZO=843) U Marijuana (THC) Screen (CUTOFF=50) RPR (NONREACTIVE) Hep Bs Antigen (NONREACTIVE) Rubella IgG Antibody (REACTIVE) SARS-CoV-2 RNA (LUCIE) (NEGATIVE) MRSA (PCR) Positive H Group B Strep (PCR) (NEGATIVE) Blood Type Gel Antibody Screen Med Orders - Current: Current Medications Diphenhydramine HCl (Diphenhydramine 50 Mg/Ml Sdv) 25 mg IVPUSH Q6H PRN PRN Reason: Itching or Nausea Ephedrine Sulfate (Ephedrine 50 Mg/Ml Sdv) 5 mg IVPUSH SEECOMMENT PRN PRN Reason: Other Oxytocin/Lactated Ringer's (Pitocin In Lr 10 Units/1,000 Ml) 10 unit in 1,000 mls @ 12 mls/hr IV TITRATE MISSY; Protocol Last Admin: 07/01/20 14:54 Dose: 2 munits/min, 12 mls/hr Documented by: Ibuprofen (Ibuprofen 600 Mg Tab) 600 mg PO Q6H PRN PRN Reason: mild pain or fever Naloxone HCl (Naloxone 0.4 Mg/Ml Sdv) 0.1 mg IVPUSH SEECOMMENT PRN PRN Reason: Respiratory Depression Oxycodone/Acetaminophen (Acetaminophen/Oxycodone 325-5 Mg Tab) 1 tab PO Q4H PRN PRN Reason: Pain (moderate 4-6) Oxycodone/Acetaminophen (Acetaminophen/Oxycodone 325-5 Mg Tab) 2 tab PO Q4H PRN PRN Reason: Pain (severe 7-10) Last Admin: 07/02/20 13:53 Dose: 2 tab Documented by: Discontinued Medications Betamethasone Acet/Betameth SodPhos (Betamethasone Acetate/Betamethasone Sod Phosphate 30 Mg/5 Ml Mdv) Confirm Administered Dose 30 mg .ROUTE .STK-MED ONE Stop: 07/01/20 13:52 Last Admin: 07/01/20 18:54 Dose: Not Given Documented by: Betamethasone Acet/Betameth SodPhos (Betamethasone Acetate/Betamethasone Sod Phosphate 30 Mg/5 Ml Mdv) 12 mg IM ONETIME ONE Stop: 07/01/20 18:41 Last Admin: 07/01/20 18:50 Dose: 12 mg Documented by: Cefazolin Sodium (Cefazolin 1 Gm Vial) Confirm Administered Dose 2 gm .ROUTE .STK-MED ONE Stop: 07/01/20 16:01 Lactated Ringer's (Ringers, Lactated) 1,000 mls @ 100 mls/hr IV ASDIRECTED [facility] Last Admin: 07/01/20 13:32 Dose: 100 mls/hr Documented by: Ampicillin Sodium 2 gm/ Sodium (Chloride) 100 mls @ 200 mls/hr IV ONETIME ONE Stop: 07/01/20 14:05 Last Admin: 07/01/20 13:35 Dose: 200 mls/hr Documented by: Ampicillin Sodium 1 gm/ Sodium (Chloride) 100 mls @ 200 mls/hr IV Q4H MISSY Oxytocin/Lactated Ringer's (Pitocin In Lr 10 Units/1,000 Ml) 10 unit in 1,000 mls @ 500 mls/hr IV .CONTINUOUS MISSY Dextrose/Lactated Ringer's (Dextrose 5%-Lactated Ringers) 1,000 mls @ 125 mls/hr IV ASDIRECTED [facility] Stop: 07/02/20 01:20 Last Admin: 07/01/20 18:26 Dose: 125 mls/hr Documented by: Ketorolac Tromethamine (Ketorolac 30 Mg/Ml Sdv) 30 mg IVPUSH Q6H [facility] Stop: 07/02/20 11:16 Last Admin: 07/02/20 05:25 Dose: 30 mg Documented by: Morphine Sulfate (Morphine Pf 10 Mg/10 Ml Sdv) Confirm Administered Dose 10 mg .ROUTE .STK-MED ONE Stop: 07/01/20 15:40 Nalbuphine HCl (Nalbuphine 10 Mg/1 Ml Vial) 10 mg IVPUSH Q2H PRN PRN Reason: Pain Ondansetron HCl (Ondansetron 4 Mg/2 Ml Sdv) 4 mg IVPUSH ONETIME PRN PRN Reason: Nausea/Vomiting Stop: 07/01/20 19:00 Sodium Chloride (Sodium Chloride 0.9% 10 Ml Syringe) 10 ml FLUSH ASDIRECTED PRN PRN Reason: Keep Vein Open Tranexamic Acid (Tranexamic Acid 1,000 Mg/10 Ml Amp) Confirm Administered Dose 1,000 mg .ROUTE .[facility] ONE Stop: 07/01/20 16:12
[2020-07-02] MEDS ORDERED: Ibuprofen 600 MG Tab PO PRN (17:15)
== END 2020-07-02 17:30 | disposition home or self-care (01) | DRG 787 ==
LOC: JD.OBCHECK 12:46 → JD.OB 13:02 → JD.OBCHECK 13:37 → UNDOADMIN 13:37 → INTOOBSV 13:37 → JD.OB 13:37 → OBSVTOIN 15:56 → JD.OB 15:57
PROVIDERS: ADMIT Obstetrics & Gynecology; ATTEND Obstetrics & Gynecology
PROC: 10D00Z0 Extraction of Products of Conception, High, Open Approach (ICD-10-PCS; principal; 2020-07-01)
DX: O42.012 Preterm premature rupture of membranes, onset of labor within 24 hours of rupture, second trimester (principal); O99.324 Drug use complicating childbirth; Z3A.25 25 weeks gestation of pregnancy; Z37.0 Single live birth; F15.90 Other stimulant use, unspecified, uncomplicated; Z20.822 Contact with and (suspected) exposure to COVID-19
CPT/HCPCS: 01961; 36415; 59025; 59409; 80306; 85025; 85027; 86592; 86762; 86803; 86850; 86870; 86900; 86901; 87340; 87641; 87653; A9270-GY; G0480; J0290; J0690; J0702; J1885; J2270; J2590; J7120; J7121; U0002